=== PATIENT | female | born 1950 | race Caucasian/White ===

== ENCOUNTER → 2021-01-24 | Outpatient (CLI) | payer OTHER ==
[~2021-01-24] MED LIST: IBUPROFEN600 MG PO
== END ==
LOC: HEART 5 15:30
DX: I10 Essential (primary) hypertension (principal); R00.2 Palpitations; R07.9 Chest pain, unspecified

== ENCOUNTER → 2021-03-07 | Outpatient (CLI) | payer OTHER | LOC: HEART 5 08:59 | DX: I47.2 Ventricular tachycardia (principal); R55 Syncope and collapse; I08.1 Rheumatic disorders of both mitral and tricuspid valves | CPT/HCPCS: 78452; 93306; A9502 ==

== ENCOUNTER → 2021-04-07 | Outpatient (CLI) | payer OTHER | LOC: KOH-I 10:43 | DX: M89.8X9 Other specified disorders of bone, unspecified site (principal) | CPT/HCPCS: 73030 ==